=== PATIENT | male | born 1970 | race Caucasian/White ===

== ENCOUNTER 2021-01-15 12:38 | Emergency (ER) | payer OTHER, SELFPAY ==
--- NOTE | 2021-01-15 12:49 | ED.GENADULT ---
HPI - General Adult General Chief complaint: Neck Pain/Injury Stated complaint: Pain in neck and elbow,knot in chest Time Seen by Provider: 01/15/21 12:49 Source: patient and RN notes reviewed Mode of arrival: ambulatory Limitations: no limitations History of Present Illness HPI narrative: 50-year-old male presents to the [facility] with pain and swelling to the left anterior portion of his neck. States he has also been having chest pain. Unable to move his shoulder or his elbow. Pain is radiating from his chest to his neck to his elbow. States that he was admitted to [place] end of November for a cardiac rule out. States they found nothing but he states he does have a history of an aortic aneurysm. Also reports that he has a lump in his chest. It's I'm afraid his cancer patient reports that he has a history of hypertension and was prescribed medication, has not been taking his medication. Pain to palpation of the anterior neck with minor swelling noted. No redness. Positive carotid pulses Patient states that the pain has been going on for 1 to 2 weeks however today the pain was worse and could not take it anymore. Related Data Home Medications Medication Instructions Recorded Confirmed lisinopril 10 mg PO DAILY 01/15/21 01/15/21 pantoprazole 40 mg PO HS 01/15/21 01/15/21 Allergies Allergy/AdvReac Type Severity Reaction Status Date / Time No Known Allergies Allergy Verified 01/15/21 13:18 Review of Systems Review of Systems: All systems reviewed & are unremarkable except as noted in HPI and below Constitutional: Constitutional: Reports no additional constitutional complaints, Denies chills and Denies fever(s) Eyes: Eyes: Reports no additional eye complaints, Denies change in vision and Denies photophobia ENT: Reports system reviewed and no additional complaints, except as documented, Denies vertigo, Denies dizziness, Denies nasal congestion and Denies sore throat Cardiovascular: Cardiovascular: Reports as per HPI, Reports chest pain and Reports radiating jaw, neck or arm pain Respiratory: Respiratory: Reports as per HPI, Denies chest congestion, Denies cough and Reports dyspnea Gastrointestinal: Gastrointestinal: Reports as per HPI, Denies abdominal pain, Denies diarrhea, Reports nausea and Denies vomiting Musculoskeletal: Musculoskeletal: Reports as per HPI and Reports arthralgias (Left elbow, left shoulder) Integumentary/Breasts: Skin/Breast: Reports system reviewed and no additional complaints, except as docu, Denies erythema and Denies rash Neurologic: Reports system reviewed and no additional complaints, except as documented, Denies dizziness, Denies syncope, Denies headache(s), Denies focal weakness, Denies numbness and Denies weakness Psychiatric: Psychiatric: Reports as per HPI and Reports anxiety Endocrine: Endocrine: Reports no additional endocrine complaints Allergic/Immunologic: Allergic/Immunologic: Reports no additional allergic/immunologic complaints PMFSH Past Medical History Medical History (Updated 01/15/21 @ 14:49 by Merari Shah) Chronic GERD Hypertension Social History Social History Gender identity (if verbalized by the patient): Male Comments At the time of my signature, I reviewed and agree with the nursing past medical, surgical, social, and family history. There is no relevant family history pertinent to the patient complaint. Exam Const: General: alert Nutritional Appearance: well nourished Orientation/consciousness: patient oriented x3 Limitations: no limitations HENMT: Head: normal to inspection Ears: external ears normal Eyes: Conjunctivae: conjunctivae normal Pupils: Equal, round and reactive pupils present Neck: Neck: trachea midline, anterior neck swelling (Left), tender and No submandibular swelling Thyroid: thyroid normal Carotids: pulses diminished Other: Swelling to the left side of neck, tender to palpation
[2021-01-15 12:55] VITALS: BP 147/98; PULSE 78; RESP 20; TEMP 36.1; O2SAT 99
--- NOTE | 2021-01-15 13:18 | ECG_ITS ---
Measurements Intervals Sarah Rate: 68 P: 36 ND: 188 QRS: 65 QRSD: 98 T: 47 QT: 386 QTc: 413 Interpretive Statements SINUS RHYTHM BASELINE ARTIFACT- I, II, III, AVR, AVL, AVF NORMAL ECG Electronically Signed On 01-15-2021 13:28:50 CDT by Morales Trujillo D.O.
== END 2021-01-15 12:55 | disposition short-term general hospital (02) ==
PROVIDERS: Emergency Provider Nurse Practitioner
DX: R22.1 Localized swelling, mass and lump, neck (principal); K21.9 Gastro-esophageal reflux disease without esophagitis; I10 Essential (primary) hypertension
CPT/HCPCS: 93005; 99213; G0463

== ENCOUNTER 2021-01-15 13:13 | Emergency (ER) | payer OTHER, SELFPAY ==
--- NOTE | ~2021-01-15 | CT_ITS ---
EXAMINATION: CT soft tissue neck chest w EXAM DATE: 01/15/2021 15:55 INDICATION: Swelling left chest/neck. TECHNIQUE: Spiral CT of the neck and chest was performed following intravenous injection of 75 mL Omn ipaque 350. Axial, coronal and sagittal images of the neck were reviewed. Axial, coronal and sagitt al images of the chest were reviewed. Coronal maximum intensity pixel images of chest reviewed. The dose-length product (DLP) for this examination was 1017.57 mGy-cm. The exposure was tailored accord ing to patient size (auto mA exposure control), and iterative reconstruction (ASIR) was used as addit ional dose reduction technique. There is no prior study for comparison. FINDINGS: NECK: The thyroid gland is unremarkable. The submandibular and parotid glands are symmetric. Sc attered internal jugular chain lymph nodes with one that is borderline enlarged at 10 x 14 mm on the left, but probably reactive. The airway is unremarkable. Parapharyngeal and pre-glottic fat planes are preserved. The opacified vasculature is patent (including both internal jugular veins). Left subclavian vein is not opacified at time of imaging. The SVC is patent. The orbits are unremarkable. Visualized sinuses and mastoid air cells are well aerated. There is cervical spondylosis. CHEST: Mildly dilated ascending aorta at 4.2 cm. Mild emphysema. The lungs are clear. There are no pleural or pericardial effusions. Tracheobronchial tree is patent. There is no mediastinal, hilar or axillary lymphadenopathy. There is no pneumothorax. Heart normal in size. There is mild cor onary arterial calcification, arterial sclerosis. Upper abdomen is unremarkable. There is thoracic spondylosis without osteoblastic or osteolytic lesions identified. IMPRESSION: 1. No acute neck or chest findings. 2. Borderline left internal jugular chain lymph nodes probably reactive. 3. Mildly dilated ascending aorta, 4.2 cm. Reviewed, dictated and finalized at location B.
--- NOTE | ~2021-01-15 | XR_ITS ---
XR shoulder LT min 2V 01/15/2021 14:27 Indication: Left shoulder pain Procedure: 4 views left shoulder Comparison: No prior studies for comparison. Findings: No fracture, subluxation or dislocation. No soft tissue abnormality. Surrounding osseous st ructures within normal limits. There is anatomic alignment. Impression: 1: No acute bone or joint abnormality. Reviewed, dictated and finalized at location A. Impression: 1: No acute bone or joint abnormality.
--- NOTE | ~2021-01-15 | XR_ITS ---
XR clavicle LT 01/15/2021 14:27 INDICATION: Left clavicle pain and swelling PROCEDURE: 2 views left clavicle COMPARISON: No prior studies for comparison. FINDINGS: Fracture, dislocation or subluxation is not identified. The soft tissues appear within norm al limits. No foreign bodies are identified. IMPRESSION: 1: NO ACUTE BONE OR JOINT ABNORMALITY IDENTIFIED. Reviewed, dictated and finalized at location A.
[2021-01-15 13:15] VITALS: BP 141/105; PULSE 79; RESP 18; TEMP 36.7; O2SAT 100
[2021-01-15 15:48] LABS: Estimated CRCL calculation 67 ml/min; Estimated Glomerular Filt Rate > 60
[2021-01-15 15:53] LABS: Basophils Absolute Auto 0.1 K/mm3 (0.0-0.1); Basophils Percent Auto 0.8 % (0.2-1.2); Eosinophils Absolute Auto 0.3 K/mm3 (0-0.3); Eosinophils Percent Auto 3.2 % (0-4.4); Hematocrit 45.5 % (42.0-52.0); Hemoglobin 14.9 g/dL (14.0-18.0); Immature Granulocyte Absolute 0.07 K/mm3 (0.00-0.031); Immature Granulocyte Percent A 0.8 % (0-0.5); Lymphocytes Absolute Auto 2.25 K/mm3 (0.9-3.2); Lymphocytes Percent Auto 25.2 % (18.3-44.2); Mean Corpuscular HGB Conc 32.7 g/dl (32-36); Mean Corpuscular Hemoglobin 29.1 pg (26-34); Mean Corpuscular Volume 88.9 fl (80-100); Monocytes Absolute Auto 0.7 K/mm3 (0.1-0.6); Monocytes Percent Auto 7.5 % (2.6-8.5); Neutrophils Absolute Auto 5.6 K/mm3 (1.3-6.7); Neutrophils Percent Auto 62.5 % (45.5-73.1); Platelet Count Result 259 k/mm3 (150-375); Red Blood Count 5.12 M/mm3 (4.6-6.20); Red Cell Distribution Width 13.9 % (11.5-14.5); White Blood Count 8.9 K/mm3 (4.5-10.0)
[2021-01-15 16:02] LABS: INR 0.9; Prothrombin Time 11.9 Seconds (11.1-14.7)
[2021-01-15 16:03] LABS: Partial Thromboplastin Time 34.8 SECONDS (22.3-36.8)
[2021-01-15 16:06] LABS: Anion Gap 7 mmol/L (8-16); Blood Urea Nitrogen 15 mg/dL (9-20); Calcium 9.5 mg/dL (8.4-10.2); Carbon Dioxide 26 mmol/L (22-30); Chloride 106 mmol/L (98-107); Estimated CRCL calculation 73 ml/min; Estimated Glomerular Filt Rate > 60; Glucose 101 mg/dL (65-110); Potassium 4.4 mmol/L (3.4-5.0); Sodium 139 mmol/L (137-145)
[2021-01-15 17:15] VITALS: BP 126/81; PULSE 66; RESP 16; O2SAT 99
--- NOTE | 2021-01-15 18:35 | ED.GENADULT ---
HPI - General Adult General Chief complaint: Unspecified Stated complaint: neck pain and swelling Time Seen by Provider: 01/15/21 14:06 History of Present Illness HPI narrative: Patient is a 50-year-old male who presents ER with complaints of left shoulder pain and swelling of his neck. Patient reports he is having pain in his shoulder for the last 2 months and it radiates down his arm on occasion. No functional weakness in the arm. He reports crepitus in the shoulder joint. No known injury. No pain over the clavicle. He feels like his neck is swelling related to his shoulder pain. No weight loss or atrophy of muscles in the arm. No difficulty breathing or swallowing. Patient reports she has a known aneurysm of the thoracic aorta. Related Data Home Medications Medication Instructions Recorded Confirmed lisinopril 10 mg PO DAILY 01/15/21 01/15/21 pantoprazole 40 mg PO HS 01/15/21 01/15/21 Allergies Allergy/AdvReac Type Severity Reaction Status Date / Time No Known Allergies Allergy Verified 01/15/21 16:07 Review of Systems Review of Systems: All systems reviewed & are unremarkable except as noted in HPI and below Constitutional: Constitutional: Denies chills, Denies fatigue and Denies fever(s) Comments: No weight loss Cardiovascular: Cardiovascular: Denies chest pain Respiratory: Respiratory: Denies cough and Denies dyspnea Gastrointestinal: Gastrointestinal: Denies abdominal pain, Denies nausea and Denies vomiting Musculoskeletal: Musculoskeletal: Denies back pain, Reports arthralgias, Denies joint swelling, Denies muscle weakness, Denies neck pain and Reports radiating pain into limb PMFSH Past Medical History Medical History (Updated 01/15/21 @ 18:40 by Joni Mejia MD) Chronic GERD Hypertension Surgical History Surgical History (Updated 01/15/21 @ 18:40 by Joni Mejia MD) No pertinent past surgical history Social History Social History (Updated 01/15/21 @ 18:40 by Joni Mejia MD) Smoking status: Former smoker Gender identity (if verbalized by the patient): Male Exam Narrative: Exam Narrative: GENERAL: Well-appearing, well-nourished, and in no acute distress. HEAD: Normocephalic, atraumatic. ENT: Mucous membranes moist. NECK: Supple. No midline tenderness. No paraspinal muscular tenderness. CHEST: Clear to auscultation. No respiratory distress. HEART: Regular rate and rhythm. Normal peripheral pulses. ABDOMEN: Soft, nontender, nondistended. EXTREMITIES: Shoulder with anterior joint tenderness but no redness or swelling. Patient draws his shoulder up towards his left neck. No reproducible tenderness over the trapezius musculature. SKIN: Warm, dry, no rash. NEURO: Alert and oriented x3. Course Course Emergency Course: Unremarkable imaging of the shoulder as well as the soft tissue of the neck and chest. Suspect patient has a rotator cuff injury as causing him to draw shoulder and towards his neck as he also holds his arm in favor positions similar to being in a sling. Recommend anti-inflammatories and muscle x-rays. I have also recommend follow-up with an orthopedic surgeon for further treatment evaluation. Vital Signs Vital signs: Vital Signs Temperature 98.1 F 01/15/21 13:15 Pulse Rate 79 01/15/21 13:15 Respiratory Rate 18 01/15/21 13:15 Blood Pressure 141/105 H 01/15/21 13:15 Pulse Oximetry 100 01/15/21 13:15 Temperature 98.1 F 01/15/21 13:15 Pulse Rate 66 01/15/21 17:15 Respiratory Rate 16 01/15/21 17:15 Blood Pressure 126/81 01/15/21 17:15 Pulse Oximetry 99 01/15/21 17:15 Medical Decision Making Vital Signs Vital Signs: Vital Signs Temperature 98.1 F 01/15/21 13:15 Pulse Rate 79 01/15/21 13:15 Respiratory Rate 18 01/15/21 13:15 Blood Pressure 141/105 H 01/15/21 13:15 Pulse Oximetry 100 01/15/21 13:15 Temperature 98.1 F 01/15/21 13:15 Pulse Rate 66 01/15/21 17:15 Respiratory Ra
== END 2021-01-15 18:40 | disposition home or self-care (01) ==
PROVIDERS: Emergency Provider Emergency Medicine
DX: M25.512 Pain in left shoulder (principal); G89.29 Other chronic pain; I10 Essential (primary) hypertension; K21.9 Gastro-esophageal reflux disease without esophagitis
CPT/HCPCS: 70491; 71260; 73000; 73030; 80048; 85025; 85610; 85730; 93005; 99284; Q9967

== ENCOUNTER 2024-01-15 13:33 | Emergency (ER) | payer SELFPAY ==
[2024-01-15 13:36] VITALS: BP 135/95; PULSE 88; RESP 20; TEMP 36.6; O2SAT 99
--- NOTE | 2024-01-15 13:59 | ED.ANIMALBIT ---
HPI - Animal Bite General Chief Complaint: Animal Bite Stated Complaint: R leg bug bite Time Seen by Provider: 01/15/24 13:45 Source: patient Mode of arrival: ambulatory Limitations: no limitations History of Present Illness HPI narrative: this is a 53-year-old male who presents to the ED for chief complaint of right lower extremity redness and swelling and thinks he may have gotten an infection. He went to another facility yesterday and was given antibiotics. States that today he bumped his leg and the pain became exacerbated. States that he thinks that he may need the area drained. he is unsure of what initially caused the infection but states that few days ago he did go [place] with his friend in a dumpster. states that he has been taking his Augmentin as prescribed but has not been taking any Tylenol or ibuprofen. denies fevers, chills, drainage, nausea, vomiting, IV drug use or immunocompromised condition. Related Data Home Medications Medication Instructions Recorded Confirmed lisinopril 10 mg tablet 10 mg PO DAILY 01/15/21 01/15/21 pantoprazole 40 mg tablet,delayed 40 mg PO HS 01/15/21 01/15/21 release Allergies Allergy/AdvReac Type Severity Reaction Status Date / Time No Known Allergies Allergy Verified 01/16/21 16:08 Review of Systems Review of Systems: All systems as dictated in [facility] Past Medical History Medical History (Updated 01/15/24 @ 14:02 by Winston Jimenes PA-C) Chronic GERD Hypertension Surgical History Surgical History (System 01/16/21 @ 16:08 by Carlton Schwab) No pertinent past surgical history Social History Social History (System 01/16/21 @ 16:08 by Carlton Schwab) Smoking status: Former smoker Gender identity (if verbalized by the patient): Male Exam Narrative: GENERAL: Well-appearing, well-nourished, and in no acute distress. HEAD: Normocephalic, atraumatic. EYES: PERRLA and EOMI. ENT: Nares clear, no rhinorrhea or epistaxis. Mucous membranes moist. Oropharynx without tonsillar hypertrophy exudate or other lesions. NECK: Supple. No adenopathy or masses. CHEST: No respiratory distress. Clear to auscultation. No wheezes rales or rhonchi HEART: Regular rate and rhythm. No murmur heard. Normal peripheral pulses. ABDOMEN: Soft, nontender, nondistended, normal active bowel sounds. MSK: Normal range of motion. No edema. SKIN: Small 3 x 3 cm area of erythema to the right anterolateral hernandez. The area is firm but no obvious fluctuance. Bedside ultrasound performed and reveals no fluid collection. No streaking of redness up the leg. NEURO: Alert and oriented x4. No focal deficits. PSYCH: Normal mood and affect. Course Vital Signs Vital signs: Vital Signs Temperature 97.8 F 01/15/24 13:36 Pulse Rate 88 01/15/24 13:36 Respiratory Rate 20 01/15/24 13:36 Blood Pressure 135/95 H 01/15/24 13:36 Pulse Oximetry 99 01/15/24 13:36 Oxygen Delivery Room Air 01/15/24 13:36 Temperature 97.8 F 01/15/24 13:36 Pulse Rate 88 01/15/24 13:36 Respiratory Rate 20 01/15/24 13:36 Blood Pressure 135/95 H 01/15/24 13:36 Pulse Oximetry 99 01/15/24 13:36 Oxygen Delivery Room Air 01/15/24 13:36 MDM - Animal Bite MDM Narrative Medical decision making narrative: This is a 53-year-old male who presents to the ED with chief complaint of right hernandez redness and pain and is concern for possible abscess. Vitals are normal. Exam shows evidence of cellulitis but no abscess. Bedside ultrasound does not reveal any focal fluid collection but does show cobblestoning consistent with cellulitis. Patient was already started on Augmentin. Will prescribe doxy for some MRSA coverage. No indication for further workup at this time. Pt will be discharged in stable condition. Return precautions given and supportive measures discussed. Pt is understanding and agreeable with plan for discharge and follow-up with PCP. Discharge P
== END 2024-01-15 14:22 | disposition home or self-care (01) ==
LOC: ANHED 14:10
PROVIDERS: Emergency Provider Physician Assistant
DX: L03.115 Cellulitis of right lower limb (principal); S80.861A Insect bite (nonvenomous), right lower leg, initial encounter; I10 Essential (primary) hypertension
CPT/HCPCS: 99283